=== PATIENT | female | born 1945 | race Caucasian/White ===

== ENCOUNTER → 2020-03-08 13:35 | Outpatient (BNVA) | payer MEDICARE, OTHER, SELFPAY | PROVIDERS: Family Provider Family Medicine; PCP Family Medicine; Visit Provider Nurse Practitioner Family | DX: N39.0 Urinary tract infection, site not specified (principal); N94.9 Unspecified condition associated with female genital organs and menstrual cycle; N30.20 Other chronic cystitis without hematuria | CPT/HCPCS: 81001 ==

== ENCOUNTER → 2021-03-07 08:58 | Outpatient (BNVA) | payer MEDICARE, OTHER, SELFPAY | PROVIDERS: Family Provider Family Medicine; PCP Nurse Practitioner Family; Visit Provider Urology | DX: N30.20 Other chronic cystitis without hematuria (principal); N94.9 Unspecified condition associated with female genital organs and menstrual cycle | CPT/HCPCS: 81003 ==

== ENCOUNTER → 2021-06-11 09:50 | Outpatient (BNVA) | payer MEDICARE, OTHER, SELFPAY | PROVIDERS: Family Provider Family Medicine; PCP Nurse Practitioner Family; Visit Provider Nurse Practitioner Family | DX: Z20.822 Contact with and (suspected) exposure to COVID-19 (principal) | CPT/HCPCS: 87635 ==

== ENCOUNTER → 2022-03-26 08:54 | Outpatient (BNVA) | payer MEDICARE, OTHER, SELFPAY | PROVIDERS: Family Provider Family Medicine; PCP Nurse Practitioner Family; Visit Provider Nurse Practitioner Family | DX: N30.20 Other chronic cystitis without hematuria (principal) | CPT/HCPCS: 81003; 99213 ==

== ENCOUNTER → 2022-06-26 09:28 | Outpatient (BNVA) | payer MEDICARE, OTHER, SELFPAY | PROVIDERS: Family Provider Family Medicine; PCP Nurse Practitioner Family; Visit Provider Nurse Practitioner Family | DX: N30.20 Other chronic cystitis without hematuria (principal) | CPT/HCPCS: 81003; 87077; 87086; 87186; 99213 ==

== ENCOUNTER → 2022-08-11 08:13 | Outpatient (BNVA) | payer MEDICARE, OTHER, SELFPAY | PROVIDERS: Family Provider Family Medicine; PCP Nurse Practitioner Family; Visit Provider Nurse Practitioner Family | DX: N30.20 Other chronic cystitis without hematuria (principal) | CPT/HCPCS: 81003; 87086; 99213; 99214 ==

== ENCOUNTER → 2022-10-10 09:56 | Outpatient (BNVA) | payer MEDICARE, OTHER, SELFPAY | PROVIDERS: Family Provider Family Medicine; PCP Nurse Practitioner Family; Visit Provider Urology | DX: N30.20 Other chronic cystitis without hematuria (principal); N94.9 Unspecified condition associated with female genital organs and menstrual cycle | CPT/HCPCS: 51798; 81003; 99213 ==

== ENCOUNTER → 2023-01-20 08:38 | Outpatient (BNVA) | payer MEDICARE, OTHER, SELFPAY | PROVIDERS: Family Provider Family Medicine; PCP Nurse Practitioner Family; Visit Provider Urology | DX: N30.20 Other chronic cystitis without hematuria (principal); N94.9 Unspecified condition associated with female genital organs and menstrual cycle | CPT/HCPCS: 81003; 99213 ==

== ENCOUNTER → 2023-03-16 09:11 | Outpatient (BNVA) | payer MEDICARE, OTHER, SELFPAY | PROVIDERS: Family Provider Family Medicine; PCP Nurse Practitioner Family; Referring Provider Nurse Practitioner Family; Visit Provider Specialist | DX: M65.4 Radial styloid tenosynovitis [de Quervain] (principal); M25.531 Pain in right wrist; M25.532 Pain in left wrist | CPT/HCPCS: 73110; 99204 ==

== ENCOUNTER 2023-03-27 07:49 | Day surgery (SDC) | payer MEDICARE, OTHER, SELFPAY ==
[2023-03-26 08:45] VITALS: BMI 21.7
[2023-03-27 08:04] VITALS: BP 158/65; PULSE 67; RESP 18; TEMP 36.5; O2SAT 97
[2023-03-27] MEDS: gabapentin 300 mg Capsule PO (08:16)
[2023-03-27] MEDS: acetaminophen 1,000 MG/100 ML PIGGYBACK 400 MG IV (08:17)
[2023-03-27] MEDS: sodium chloride 0.9% 1,000 ML 30 ML IV (08:30)
--- NOTE | 2023-03-27 09:16 | P.HPUD_ITS ---
Surgery/Procedure H&P Update DATE OF PROCEDURE: March 27, 2023 DATE H&P PERFORMED: 03/16/23 H&P UPDATE INFORMATION: I have reviewed H&P completed within last 30 days, I have examined patient prior to procedure, No changes to prior documentation and H&P is in [facility] [place] on date indicated PLANNED PROCEDURE: Operation Date: 03/27/23 09:25 Proposed Procedures p RIGHT DE QUERVAINS RELEASE 2500,M65.4(Right) - Jerilyn Fonseca MD Related Problem List Diagnoses (1) De Quervain's disease (radial styloid tenosynovitis):
[2023-03-27] MEDS: ceFAZolin 2,000 MG in sodium chloride 0.9% (plus) 50 ML 100 MG IV (09:45)
[2023-03-27 10:32] VITALS: BP 110/72; PULSE 110; RESP 12; TEMP 36.1; O2SAT 100
[2023-03-27 10:35] VITALS: BP 112/67; PULSE 103; RESP 18; O2SAT 100
[2023-03-27 10:43] VITALS: BP 108/71; PULSE 98; RESP 19; TEMP 36.1; O2SAT 98
--- NOTE | 2023-03-27 10:47 | P.OP_ITS ---
Operative Report Date of procedure: March 27, 2023 Pre-op diagnosis: De Quervain's tenosynovitis right wrist Post-op diagnosis: De Quervain's tenosynovitis right wrist Post-op findings: Inflammation consistent with de Quervain's tenosynovitis in the tendons with fluid Procedure done: Right de Quervain's tenosynovitis release Specimens removed/disposition: None Pathology: none sent Surgeon: Jerilyn Fonseca Pharmacy Customer Care Specialist: None Anesthesia: General (General per LMA, ASA 3) Estimated blood loss (mL): 1 Tourniquet time (min): 18 (At 250 mmHg) IV fluids (mL): 500 Urine output (mL): 0 (No Sutherland) Complications: None Condition: stable Disposition: PACU (Then return to same-day surgery for discharge to home) Brief History: Madiha Chacon is a 77 year old female patient who presents today for right de Quervain's release. The patient rated pain at 3/10 preoperatively.? 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 Patient has been using night braces. Upon presentation for her surgical procedure today, she notes that the opposite left wrist has been hurting even more than the right. She wishes to proceed with right de Quervain's tenosynovitis release. Consents have been obtained in the office. Risks and complications of been discussed and questions were answered. Procedure: The patient was brought to the operating theater. Anesthesia provided general anesthesia per LMA, ASA 3. The patient's right upper extremity was prepped and draped in usual fashion utilizing DuraPrep. It was draped free. Tourniquet was elevated for 18 minutes at 250 mmHg. The radial styloid was palpated and an incision was made horizontally approximately 1 cm proximal to the tip of the radial styloid. Dissection continued through the skin and dermis but following that soft tissue blunt dissection was accomplished to prevent injury to the superficial radial nerve branches in the area. We were able to retract these branches and the first dorsal compartment was visualized. The fibrous tissue over the first dorsal compartment was noted to be quite thickened and erythematous. This was released longitudinally using a combination of scalpel and scissors. We then confirmed that each of the tendons at been released. There were 2 abductor pollicis longus tendons and one extensor pollicis brevis tendon. All of these were released at least a centimeter distal to the radial styloid and proximally as well. There was no further compression across the tendons. The tendons were pulled up out of the tunnel for evaluation]. Following this, the wound was irrigated. Attention was then directed to closure. Closure was accomplished with 4-0 Monocryl with 1 suture in the the subcutaneous tissues and subsequently a subcuticular suture was placed in a running fashion. We injected the wound with half percent Marcaine plain for local anesthetic. This was followed by Dermabond and OpSite. We then placed fluffs fluffs followed by soft roll and an Joey wrap. Patient was returned to Recovery Room in a satisfactory condition and will be discharged home to follow-up with me in the office. There were no specimens and no complications. Related Problem List Diagnoses (1) De Quervain's disease (radial styloid tenosynovitis):
[2023-03-27 10:49] VITALS: BP 107/82; PULSE 97; RESP 18; TEMP 36.6; O2SAT 97
[2023-03-27] MEDS: HYDROcodone-acetaminophen 5-325 mg Tablet 1 TAB PO (11:10)
[2023-03-27 11:19] VITALS: BP 109/75; PULSE 90; RESP 18; TEMP 36.5; O2SAT 96
--- NOTE | 2023-03-27 14:10 | ANES.PREANE2 ---
Pre-Anesthetic Assessment Height/Weight: Height 1.57 m Weight 53.977 kg Temp Pulse Resp BP Pulse Ox O2 Del Method O2 Flow Rate 97.7 F 90 18 109/75 96 Room Air 6 03/27/23 11:19 03/27/23 11:19 03/27/23 11:19 03/27/23 11:19 03/27/23 11:19 03/27/23 11:19 03/27/23 10:32 Operation Date: 03/27/23 09:25 Proposed Procedures p RIGHT DE QUERVAINS RELEASE 2500,M65.4(Right) - Jerilyn Fonseca MD Familial anesthetic complications: none Was Beta Elif taken within 24 hours: N/A Was Clonidine taken within 24 hours: N/A Last intake: Intake Last Liquid Date 03/27/23 Last Liquid Time 06:00 Last Solid Date 03/26/23 Last Solid Time 22:30 Social No alcohol and No tobacco Exam alert, oriented x 3, clear to auscultation bilaterally and regular rate & rhythm Airway Submandibular: within normal limits Cervical ROM: within normal limits Mallampati: Class II Dentition: false CV/HEM Hypertension Metabolic Hyperlipidemia Anesthetic Plan ASA status: 2 Anesthesia: Choice Medications/Allergies Home Medications Medication Instructions Recorded Confirmed Last Taken Type amlodipine 5 mg tablet 5 mg PO DAILY 03/07/20 03/26/23 03/27/23 History benazepril 20 mg tablet 20 mg PO BID 03/07/20 03/26/23 03/27/23 History calcium carbonate 600 mg-vitamin 600 tab PO DAILY 03/07/20 03/26/23 03/26/23 History D3 10 mcg (400 unit) chewable tablet (Calcium 600 with Vitamin D3) cranberry fruit concentrate 500 mg 1,500 mg PO DAILY 03/07/20 03/26/23 03/26/23 History capsule multivitamin,de-jfvd-zkfrbwyp 1 tab PO DAILY 03/07/20 03/26/23 03/26/23 History (Complete Multivitamin tablet) omega-3 fatty acids 1,000 mg 1,000 mg PO QID 03/07/20 03/26/23 03/23/23 History capsule (Fish Oil Concentrate) simvastatin 20 mg tablet 20 mg PO DAILY 03/07/20 03/26/23 03/26/23 History baclofen 10 mg tablet 10 mg PO BID PRN Pain 03/07/21 03/26/23 03/26/23 History lactobacillus combination no.8 3 3,000 mmu cells PO DAILY 03/07/21 03/26/23 03/26/23 History billion cell capsule (Adult Probiotic) loratadine 10 mg tablet (Claritin) 10 mg PO DAILY PRN allergies 02/12/22 03/26/23 03/26/23 History estradiol 0.01% (0.1 mg/gram) 1 g vaginal .twice weekly #42.5 01/20/23 03/26/23 03/26/23 Rx vaginal cream (Estrace) grams methenamine hippurate 1 gram tablet 1 g PO BID Recurrent UTI #60 tabs 01/20/23 03/26/23 03/26/23 Rx hydrocodone 5 mg-acetaminophen 325 1 tab PO Q4H PRN pain 7 days #30 03/27/23 Unknown Rx mg tablet tabs Allergies Allergy/AdvReac Type Severity Reaction Status Date / Time Sulfa (Sulfonamide Allergy ALGY-Hives Verified 03/27/23 08:00 Antibiotics) PFSH Anesthesia Medical History Chronic cystitis Genital atrophy of female Surgical History Hx of cholecystectomy Hx of hysterectomy Hx of tonsillectomy Family History Mother , AT AGE 65 HEART DISEASE CAD (coronary artery disease) Father , AT AGE 89 HEART DISEASE CAD (coronary artery disease) Social History Smoking and tobacco status: never smoked Alcohol intake: current Alcohol intake frequency: holidays/special occasions only Alcohol type: wine Substance/Drug Use: never Lives independently: Yes Housing: House Marital status: / Current occupational status: retired Pets and animals: Yes Pets & animals: cat(s) and dog(s) Pets & animal details: 2 dogs and 1 cat Data Anesthesia Cardiac Studies: No Data to Display
--- NOTE | 2023-03-27 14:28 | ANE.PACU2 ---
Inpatient post-anesthesia follow up: Airway intact: Yes Vital signs: Temperature 97.7 F Pulse Rate 90 Respiratory Rate 18 Blood Pressure 109/75 Pulse Oximetry 96 Oxygen Delivery Me thod Room Air Oxygen Flow Rate 6 Fraction of Inspir ed Oxygen Hydration adequate: Yes Nausea and vomiting: No Pain level: 2 Mental status: Baseline
== END 2023-03-27 11:39 | disposition home or self-care (01) ==
PROVIDERS: PCP Nurse Practitioner Family; Visit Provider Specialist
PROC: (CPT 25000; principal; 2023-03-27 09:25)
DX: M65.4 Radial styloid tenosynovitis [de Quervain] (principal); E78.5 Hyperlipidemia, unspecified; I10 Essential (primary) hypertension; Z79.891 Long term (current) use of opiate analgesic
CPT/HCPCS: 25000; J0131; J0690; J2405; J2704; J3010; J3490; J7030

== ENCOUNTER → 2023-04-10 10:38 | Outpatient (BNVA) | payer MEDICARE, OTHER, SELFPAY | PROVIDERS: PCP Nurse Practitioner Family; Visit Provider Nurse Practitioner Family | DX: Z98.890 Other specified postprocedural states (principal) | CPT/HCPCS: 99024 ==

== ENCOUNTER 2023-05-11 15:03 | Outpatient (CLI) | payer MEDICARE, OTHER, SELFPAY | END 2023-05-11 15:04 | disposition home or self-care (01) | LOC: SPT 15:25 | PROVIDERS: PCP Nurse Practitioner Family; Visit Provider Specialist | DX: Z46.89 Encounter for fitting and adjustment of other specified devices (principal); M65.4 Radial styloid tenosynovitis [de Quervain] | CPT/HCPCS: 97760; 99214; L3809 ==

== ENCOUNTER 2023-05-18 08:48 | Day surgery (SDC) | payer MEDICARE, OTHER, SELFPAY ==
[2023-05-15 14:14] VITALS: BMI 21.7
[2023-05-18] VITALS (7 sets, daily range): BP systolic 115–142; BP diastolic 59–99; PULSE 73–84; RESP 12–16; TEMP 36.1–36.4; O2SAT 95–97
[2023-05-18] MEDS: acetaminophen 1,000 MG/100 ML PIGGYBACK 400 MG IV (09:26)
[2023-05-18] MEDS: sodium chloride 0.9% 1,000 ML 30 ML IV (09:27)
[2023-05-18] MEDS: CELEcoxib 200 mg Capsule 400 MG PO (09:28)
--- NOTE | 2023-05-18 09:42 | ECG_ITS ---
[facility] Test Date: 2023-05-18 Pat Name: Madiha Chacon Department: Room: Gender: Female Promotions Representative: : 1945 Requested By: Alex Cabezas Order Number: [id number] Sherin MD: Erlin Conteh M.D. Measurements Intervals [place] Rate: 72 P: 80 [place]: 166 QRS: -15 QRSD: 86 T: 61 QT: 409 QTc: 449 Interpretive Statements SINUS RHYTHM No previous ECG available for comparison Electronically Signed On 05-18-2023 21:48:55 CDT by Erlin Conteh M.D. [id number]
--- NOTE | 2023-05-18 09:53 | W.PM.OPSUD ---
Surgery/Procedure H&P Update DATE OF PROCEDURE: May 18, 2023 DATE H&P PERFORMED: 05/11/23 H&P UPDATE INFORMATION: I have reviewed H&P completed within last 30 days, No changes to prior documentation and H&P is in [facility] [place] EMR on date indicated PREOP DIAGNOSIS: Left de Quervain's tenosynovitis PLANNED PROCEDURE: Operation Date: 05/18/23 10:35 Proposed Procedures p LEFT DE QUERVIENS RELEASE 43037, M65.4(Left) - Jerilyn Fonseca MD Related Problem List Diagnoses (1) De Quervain's tenosynovitis, left:
[2023-05-18] MEDS: ceFAZolin 2,000 MG in sodium chloride 0.9% (plus) 50 ML 100 MG IV (10:17)
--- NOTE | 2023-05-18 10:36 | ANES.PREANE2 ---
Pre-Anesthetic Assessment Height/Weight: Height 1.57 m Weight 53.977 kg Temp Pulse Resp BP Pulse Ox O2 Del Method 97.6 F 78 16 142/64 96 Room Air 05/18/23 08:56 05/18/23 08:56 05/18/23 08:56 05/18/23 08:56 05/18/23 08:56 05/18/23 09:20 Preop Diagnosis: Left de Quervain's tenosynovitis Operation Date: 05/18/23 10:35 Proposed Procedures p LEFT DE QUERVIENS RELEASE 97499, M65.4(Left) - Jerilyn Fonseca MD Familial anesthetic complications: none Was Beta Elif taken within 24 hours: N/A Was Clonidine taken within 24 hours: N/A Last intake: Intake Last Liquid Date 05/17/23 Last Liquid Time 19:00 Last Solid Date 05/17/23 Last Solid Time 19:00 Social No alcohol and No tobacco Exam alert, oriented x 3, clear to auscultation bilaterally and regular rate & rhythm Airway Submandibular: within normal limits Cervical ROM: within normal limits Mallampati: Class II CV/HEM Hypertension and Murmur Metabolic Hyperlipidemia Anesthetic Plan ASA status: 2 Anesthesia: Choice Medications/Allergies Home Medications Medication Instructions Recorded Confirmed Last Taken Type amlodipine 5 mg tablet 5 mg PO DAILY 03/07/20 05/15/23 05/18/23 History benazepril 20 mg tablet 20 mg PO BID 03/07/20 05/15/23 05/17/23 History calcium carbonate 600 mg-vitamin 600 tab PO DAILY 03/07/20 05/15/23 05/17/23 History D3 10 mcg (400 unit) chewable tablet (Calcium 600 with Vitamin D3) cranberry fruit concentrate 500 mg 1,500 mg PO DAILY 03/07/20 05/15/23 05/17/23 History capsule multivitamin,ca-tbkf-lslxztln 1 tab PO DAILY 03/07/20 05/15/23 05/17/23 History (Complete Multivitamin tablet) omega-3 fatty acids 1,000 mg 1,000 mg PO QID 03/07/20 05/15/23 05/17/23 History capsule (Fish Oil Concentrate) simvastatin 20 mg tablet 20 mg PO DAILY 03/07/20 05/15/23 05/17/23 History baclofen 10 mg tablet 10 mg PO BID PRN Pain 03/07/21 05/15/23 03/26/23 History lactobacillus combination no.8 3 3,000 mmu cells PO DAILY 03/07/21 05/15/23 05/17/23 History billion cell capsule (Adult Probiotic) loratadine 10 mg tablet (Claritin) 10 mg PO DAILY PRN allergies 02/12/22 05/18/23 05/17/23 History estradiol 0.01% (0.1 mg/gram) 1 g vaginal .twice weekly #42.5 01/20/23 05/18/23 05/17/23 Rx vaginal cream (Estrace) grams methenamine hippurate 1 gram tablet 1 g PO BID Recurrent UTI #60 tabs 01/20/23 05/15/23 03/26/23 Rx THUMB SPICA BRACE #1 ea 05/11/23 05/11/23 Unknown Rx Allergies Allergy/AdvReac Type Severity Reaction Status Date / Time Sulfa (Sulfonamide Allergy ALGY-Hives Verified 05/18/23 09:09 Antibiotics) Current Medications Generic Name Dose Route Start Last Admin Trade Name Freq PRN Reason Stop Dose Admin Sodium Chloride 1,000 mls @ 30 mls/hr 05/18/23 09:00 05/18/23 09:27 Sodium Chloride 0.9% IV 05/19/23 08:59 30 mls/hr .Q24H ELVIS Administration PFSH Anesthesia Medical History Chronic cystitis Genital atrophy of female Surgical History Hx of cholecystectomy Hx of hysterectomy Hx of tonsillectomy Family History Mother , AT AGE 65 HEART DISEASE CAD (coronary artery disease) Father , AT AGE 89 HEART DISEASE CAD (coronary artery disease) Social History Smoking and tobacco status: never smoked Alcohol intake: current Alcohol intake frequency: holidays/special occasions only Alcohol type: wine Substance/Drug Use: never Lives independently: Yes Housing: House Marital status: / Current occupational status: retired Pets and animals: Yes Pets & animals: cat(s) and dog(s) Pets & animal details: 2 dogs and 1 cat Data Anesthesia Cardiac Studies: No Data to Display
--- NOTE | 2023-05-18 11:28 | P.OP_ITS ---
Operative Report Date of procedure: May 18, 2023 Pre-op diagnosis: Left de Quervain's tenosynovitis Post-op diagnosis: Left de Quervain's tenosynovitis Post-op findings: Inflammation consistent with de Quervain's tenosynovitis in the tendons with fluid Procedure done: Left de Quervain's release Pathology: none sent Surgeon: Jerilyn Fonseca Print Color Operator: None Anesthesia: General (Per LMA, ASA 2) Estimated blood loss (mL): 1 Tourniquet time (min): 19 (At 250 mmHg) IV fluids (mL): 800 Urine output (mL): 0 (No Sutherland) Complications: None Findings: Significant tenosynovitis around the tendons with fluid Condition: stable Disposition: PACU (Then return to same-day surgery for discharge to home) Brief History: This 77-year-old woman initially presented to me with right de Quervain's symptoms. She underwent de Quervain's release in the right wrist several months ago. The patient presented to my clinic stating that she had the exact same symptoms on the opposite side. In fact, at the time of her initial right de Quervain's release, the left had begun hurting even more than the right. The patient wished to proceed with de Quervain's tenosynovitis release. Risks and complications were discussed with her. Questions were answered, and consents were signed. Procedure: The patient was brought to the operating theater. Anesthesia provided general anesthesia per LMA, ASA 2. The patient's right upper extremity was prepped and draped in usual fashion utilizing DuraPrep. It was draped free.? Tourniquet was elevated for 19 minutes at 250 mmHg. The radial styloid was palpated and an incision was made horizontally approximately 1 cm proximal to the tip of the radial styloid. Dissection continued through the skin and dermis but following that soft tissue blunt dissection was accomplished to prevent injury to the superficial radial nerve branches in the area. We were able to retract these branches and the first dorsal compartment was visualized. The fibrous tissue over the first dorsal compartment was noted to be quite thickened and erythematous. This was released longitudinally using a combination of scalpel and scissors. We then confirmed that each of the tendons at been released. There were 2 abductor pollicis longus tendons and one extensor pollicis brevis tendon. All of these were released at least a centimeter distal to the radial styloid and proximally as well. There was no further compression across the tendons. The tendons were pulled up out of the tunnel for evaluation. Following this, the wound was irrigated. Attention was then directed to closure. Closure was accomplished with 4-0 Monocryl with 1 suture in the the subcutaneous tissues and subsequently a subcuticular suture was placed in a running fashion. We injected the wound with half percent Marcaine plain for local anesthetic. This was followed by Steri-Strips, Dermabond and OpSite. We then placed fluffs fluffs followed by soft roll and an Joey wrap. Patient was returned to Recovery Room in a satisfactory condition and will be discharged home to follow-up with me in the office. There were no specimens and no complications. Related Problem List Diagnoses (1) De Quervain's tenosynovitis, left:
[2023-05-18] MEDS: HYDROcodone-acetaminophen 5-325 mg Tablet 1 TAB PO (11:48)
--- NOTE | 2023-05-18 14:33 | ANE.PACU2 ---
Inpatient post-anesthesia follow up: Airway intact: Yes Vital signs: Temperature 97.5 F Pulse Rate 73 Respiratory Rate 16 Blood Pressure 134/64 Pulse Oximetry 95 Oxygen Delivery Me thod Room Air Oxygen Flow Rate Fraction of Inspir ed Oxygen Hydration adequate: Yes Nausea and vomiting: No Pain level: 2 Mental status: Baseline
== END 2023-05-18 12:05 | disposition home or self-care (01) ==
PROVIDERS: PCP Nurse Practitioner Family; Visit Provider Specialist
PROC: (CPT 25000; principal; 2023-05-18 10:25)
DX: M65.4 Radial styloid tenosynovitis [de Quervain] (principal); I10 Essential (primary) hypertension; E78.5 Hyperlipidemia, unspecified; R01.1 Cardiac murmur, unspecified
CPT/HCPCS: 25000; 93005; J0131; J0690; J1100; J2405; J2704; J3010; J3490; J7030

== ENCOUNTER → 2023-06-02 08:49 | Outpatient (BNVA) | payer MEDICARE, OTHER, SELFPAY | PROVIDERS: PCP Nurse Practitioner Family; Visit Provider Nurse Practitioner Family | DX: Z98.890 Other specified postprocedural states (principal) | CPT/HCPCS: 99024 ==

== ENCOUNTER 2023-06-17 08:11 | Outpatient (CLI) | payer MEDICARE, OTHER, SELFPAY ==
--- NOTE | 2023-06-17 08:45 | USCV_ITS ---
Madhia Chacon Age: 78 Gender: F : 1945 Exam Date: 06/17/2023 09:04 Ordering Phys: Vane Edmonds Technologist: Hannah Alexandra [place] [facility] [place]: Murmur BP: 118 / 72 HR: 73 Rhythm: Sinus Technical Quality: Adequate MEASUREMENTS (Male / Female) Normal Values 2D ECHO LV Diastolic Diameter PLAX 3.6 cm 4.2 - 5.9 / 3.9 - 5.3 cm LV Systolic Diameter PLAX 1.5 cm IVS Diastolic Thickness 1.1 cm 0.6 - 1.0 / 0.6 - 0.9 cm IVS Systolic Thickness 1.3 cm LVPW Diastolic Thickness 0.8 cm 0.6 - 1.0 / 0.6 - 0.9 cm LVPW Systolic Thickness 1.5 cm LVOT Diameter 2.0 cm LV Ejection Fraction 2D Teich 88.8 % LV Ejection Fraction MOD 2C 58.5 % LV Ejection Fraction 2C AL 58.8 % LA Diameter 2.4 cm LA Width 3.7 cm LA Height 3.9 cm RA Width 2.2 cm RA Height 4.5 cm Aorta at Sinotubular Diameter 2.0 cm IVC Diameter 1.1 cm M-MODE Aortic Annulus Diameter 2.6 cm LA Ao Ratio MM 0.7 MV E Point Septal Separation 0.2 cm DOPPLER AV Peak Velocity 245.0 cm/s LVOT Peak Velocity 169.0 cm/s AV Area Cont Eq vti 2.7 cm squared AV Area Cont Eq pk 2.2 cm squared MV Peak Velocity 170.0 cm/s MV Area PHT 3.5 cm squared Mitral E to A Ratio 0.8 MV E' Velocity 59.5 cm/s Mitral E to MV E' Ratio 9.7 Mitral E to LV E' Lateral Ratio 8.8 Mitral E to LV E' Septal Ratio 10.7 TR Peak Velocity 245.3 cm/s TR Peak Gradient 24.1 mmHg Right Atrial Pressure 5.0 mmHg Pulmonary Artery Systolic Pressu 29.1 mmHg PV Peak Velocity 111.0 cm/s RV Acceleration Time 0.1 s RV Ejection Time 0.3 s RV AcT/ET 0.5 FINDINGS Left Ventricle Left ventricular normal size. LV systolic function is normal with EF of 60 to 65%. Basal septal hypertrophy seen. No regional wall motion abnormalities are seen. Grade 1 diastolic dysfunction Right Ventricle Normal in size and function Right Atrium Normal in size Left Atrium Normal in size Mitral Valve Mild mitral annular calcification seen. Mild mitral regurgitation. Mild mitral stenosis. Aortic Valve Aortic valve is thickened. Mild aortic stenosis with mean gradient across aortic valve of 9.4 mmHg. Trace aortic regurgitation. Tricuspid Valve Mild tricuspid regurgitation. Pulmonary artery systolic pressure is normal. Pulmonic Valve Not well visualized Pericardium Normal Aorta Normal in size IVC Appears to be normal CONCLUSIONS LV systolic function was normal with EF of 60 to 65%. Basal septal hypertrophy seen. Grade 1 diastolic dysfunction Mitral regurgitation. Mild mitral stenosis. Mild aortic stenosis. Trace aortic regurgitation Mild tricuspid regurgitation. No comparison studies are available. Rufino Tineo MD (Electronically Signed) Final Date: 07 July 2023 17:56 S
== END 2023-06-17 08:12 | disposition home or self-care (01) ==
LOC: RAD 08:16
PROVIDERS: PCP Nurse Practitioner Family; Visit Provider Nurse Practitioner Family
DX: R01.1 Cardiac murmur, unspecified (principal)
CPT/HCPCS: 93306